=== PATIENT | male | born 1970 | race Caucasian/White ===

== ENCOUNTER 2017-07-25 22:01 | Emergency (ER) | payer MEDICAID ==
[2017-07-25] MEDS ORDERED: HYDROmorphone 1 MG/ML Syringe IVPUSH ONE ×2 (22:26→23:15)
[2017-07-25] MEDS ORDERED: Ondansetron 4 MG/2 ML SDV IVPUSH ONE (22:26)
[2017-07-25] MEDS ORDERED: LORazepam 2 MG/ML MDV IVPUSH ONE (22:31)
[2017-07-25] MEDS: Sodium Chloride 0.9% 1,000 ML IV SCH (22:40)
--- NOTE | 2017-07-25 23:21 | EDM.PDOC ---
ED HPI GENERAL MEDICAL PROBLEM - General Chief Complaint: Genitourinary Problem Stated Complaint: KIDNEY STONE Time Seen by Provider: 07/25/17 22:12 Source of Information: Reports: Patient History Limitations: Reports: No Limitations - History of Present Illness INITIAL COMMENTS - FREE TEXT/NARRATIVE: kidney stone; this is a 46 year old male present to ER via POV. Reports he is in the area [place] hunting, when at 8pm this evening experience severe bilateral flank pain. unable to tolerate the pain came to ER. reports last void this am otherwise does not have urge to void. reports past history of kidney stones with surgical procedure done Oct 2016 and 2 year before that with maybe stents, not sure. Onset: Sudden Onset Date: 07/25/17 Onset Time: 20:00 Duration: Constant, Getting Worse Right flank Pain Score (Numeric/FACES): 6 - Related Data Allergies Allergy/AdvReac Type Severity Reaction Status Date / Time No Known Allergies Allergy Verified 07/25/17 22:27 Home Meds: Home Meds SUMAtriptan Succinate [Imitrex] 25 mg PO ASDIRECTED 07/25/17 [History] traMADol [Ultram] 50 mg PO Q4H PRN 07/25/17 [History] Past Medical History HEENT History: Reports: Allergic Rhinitis Cardiovascular History: Reports: High Cholesterol Genitourinary History: Reports: Renal Calculus Musculoskeletal History: Reports: Other (See Below) Other Musculoskeletal History: "screwed up left knee, wears a brace when using knee a lot" Neurological History: Reports: Migraines - Past Surgical History HEENT Surgical History: Reports: Oral Surgery, Other (See Below) Other HEENT Surgeries/Procedures: dentures - uppers Social & Family History - Tobacco Use Smoking Status *Q: Current Every Day Smoker Years of Tobacco use: 30 Packs/Tins Daily: 1 - Caffeine Use Caffeine Use: Reports: Soda - Recreational Drug Use Recreational Drug Use: No - Living Situation & Occupation Living situation: Reports: Occupation: Employed (lives in [facility]) ED ROS GENERAL - Review of Systems Review Of Systems: See Below Constitutional: Reports: Other (bilateral flank pain) HEENT: Reports: No Symptoms Respiratory: Reports: No Symptoms Cardiovascular: Reports: No Symptoms Endocrine: Reports: No Symptoms GI/Abdominal: Reports: Abdominal Pain, Nausea (secondary to pain) : Reports: Flank Pain Musculoskeletal: Reports: Back Pain Skin: Reports: No Symptoms Neurological: Reports: No Symptoms Psychiatric: Reports: No Symptoms Hematologic/Lymphatic: Reports: No Symptoms Immunologic: Reports: No Symptoms ED EXAM, GENERAL - Physical Exam Exam: See Below Exam Limited By: No Limitations General Appearance: Alert, WD/WN, Severe Distress (nausea, dry heaves, shaking, unable to sit ), Thin Eye Exam: Bilateral Eye: EOMI, PERRL Ears: Normal External Exam, Normal Canal, Hearing Grossly Normal, Normal TMs Ear Exam: Bilateral Ear: Auricle Normal, Canal Normal, TM normal Nose: Normal Inspection, Normal Mucosa, No Blood Throat/Mouth: Normal Inspection, Normal Lips, Normal Teeth, Normal Gums, Normal Oropharynx, Normal Voice, No Airway Compromise Head: Atraumatic, Normocephalic Neck: Normal Inspection, Supple, Non-Tender, Full Range of Motion Respiratory/Chest: No Respiratory Distress, Lungs Clear, Normal Breath Sounds, No Accessory Muscle Use, Chest Non-Tender Cardiovascular: Normal Peripheral Pulses, Regular Rate, Rhythm, No Edema, No Gallop, No JVD, No Murmur, No Rub GI/Abdominal: Normal Bowel Sounds, Soft, Other (bilateral lateral abdominal pain radiates to back) (Male) Exam: Deferred Rectal (Males) Exam: Deferred Back Exam: Full Range of Motion, CVA Tenderness (R), CVA Tenderness (L) Extremities: Normal Inspection Neurological: Alert, Oriented, Normal Cognition, No Motor/Sensory Deficits Psychiatric: Normal Affect, Normal Mood Skin Exam: Warm, Dry, Intact, Normal Color, No Rash Lymphatic: No Adenopathy Course - Vital Signs Last Recorded V/S: Last Vital Signs Temp 36.4 C 07/26/17 01:40 Pulse 79 07/26/17 01:40 Resp 17 07/26/17 01:40 BP 125/75 07/26/17 01:40 Pulse Ox 98 07/26/17 01:40 - Orders/Labs/Meds Orders: Active Orders 24 hr Category Date Time Status Kidney Stone Protocol [CT] Stat Exams 07/25/17 22:29 Taken CULTURE BLOOD [BC] Urgent Lab 07/26/17 02:15 Ordered CULTURE BLOOD [BC] Urgent Lab 07/26/17 02:15 Ordered Sodium Chloride 0.9% [Normal Saline] 1,000 ml Med 07/25/17 22:15 Active IV ASDIRECTED cefTRIAXone [Rocephin] 1 gm Med 07/26/17 02:16 Ordered Sodium Chloride 0.9% [Normal Saline] 50 ml IV ONETIME Blood Culture x2 Reflex Set [OM.PC] Urgent Oth 07/26/17 02:14 Ordered Medication Orders Sodium Chloride (Normal Saline) 1,000 mls @ 999 mls/hr IV ASDIRECTED JOSE Last Admin: 07/26/17 00:20 Dose: 999 mls/hr Infusion: 07/25/17 23:41 Dose: 999 mls/hr Admin: 07/25/17 22:40 Dose: 999 mls/hr Ceftriaxone Sodium 1 gm/ (Sodium Chloride) 50 mls @ 100 mls/hr IV ONETIME ONE Stop: 07/26/17 02:45 Labs: Laboratory Tests 07/26/17 07/26/17 07/26/17 Range/Units 01:03 01:26 01:26 WBC 16.5 H (4.5-11.0) K/uL RBC 4.73 (4.30-5.90) M/uL Hgb 14.7 (12.0-15.0) g/dL Hct 43.4 (40.0-54.0) % MCV 92 (80-98) fL MCH 31 (27-31) pg MCHC 34 (32-36) % Plt Count 223 (150-400) K/uL Neut % (Auto) 84 H (36-66) % Lymph % (Auto) 9 L (24-44) % Powell % (Auto) 7 H (2-6) % Eos % (Auto) 0 L (2-4) % Baso % (Auto) 0 (0-1) % Sodium 142 (140-148) mmol/L Potassium 3.5 L (3.6-5.2) mmol/L Chloride 108 (100-108) mmol/L Carbon Dioxide 26 (21-32) mmol/L Anion Gap 11.5 (5.0-14.0) mmol/L BUN 16 (7-18) mg/dL Creatinine 1.1 (0.8-1.3) mg/dL Est Cr Clr Drug Dosing 87.56 mL/min Estimated GFR (MDRD) > 60 (>60) Glucose 115 H (74-106) mg/dL Lactic Acid (0.4-2.0) mmol/L Calcium 8.1 L (8.5-10.1) mg/dL Total Bilirubin 0.3 (0.2-1.0) mg/dL AST 16 (15-37) U/L ALT 16 (12-78) U/L Alkaline Phosphatase 73 (46-116) U/L Total Protein 6.1 L (6.4-8.2) g/dL Albumin 3.4 (3.4-5.0) g/dL Globulin 2.7 (2.3-3.5) g/dL Albumin/Globulin Ratio 1.3 (1.2-2.2) Amylase (25-115) U/L Lipase (73-393) U/L Urine Color Yellow Urine Appearance Slightly cloudy Urine pH 5.0 (4.5-8.0) Ur Specific [place] 1.015 (1.008-1.030) Urine Protein Negative (NEGATIVE) mg/dL Urine Glucose (UA) Normal (NEGATIVE) mg/dL Urine Ketones Negative (NEGATIVE) mg/dL Urine Occult Blood Large (NEGATIVE) Urine Nitrite Negative (NEGAITVE) Urine Bilirubin Negative (NEGATIVE) Urine Urobilinogen Normal (NORMAL) mg/dL Ur Leukocyte Esterase Moderate (NEGATIVE) Urine RBC 5-10 H (0-5) Urine WBC 10-20 H (0-5) Ur Epithelial Cells Few Amorphous Sediment Not seen Urine Bacteria Few Urine Mucus Moderate 07/26/17 07/26/17 Range/Units 01:28 01:28 WBC (4.5-11.0) K/uL RBC (4.30-5.90) M/uL Hgb (12.0-15.0) g/dL Hct (40.0-54.0) % MCV (80-98) fL MCH (27-31) pg MCHC (32-36) % Plt Count (150-400) K/uL Neut % (Auto) (36-66) % Lymph % (Auto) (24-44) % Powell % (Auto) (2-6) % Eos % (Auto) (2-4) % Baso % (Auto) (0-1) % Sodium (140-148) mmol/L Potassium (3.6-5.2) mmol/L Chloride (100-108) mmol/L Carbon Dioxide (21-32) mmol/L Anion Gap (5.0-14.0) mmol/L BUN (7-18) mg/dL Creatinine (0.8-1.3) mg/dL Est Cr Clr Drug Dosing mL/min Estimated GFR (MDRD) (>60) Glucose (74-106) mg/dL Lactic Acid 2.4 H (0.4-2.0) mmol/L Calcium (8.5-10.1) mg/dL Total Bilirubin (0.2-1.0) mg/dL AST (15-37) U/L ALT (12-78) U/L Alkaline Phosphatase (46-116) U/L Total Protein (6.4-8.2) g/dL Albumin (3.4-5.0) g/dL Globulin (2.3-3.5) g/dL Albumin/Globulin Ratio (1.2-2.2) Amylase 33 (25-115) U/L Lipase 119 (73-393) U/L Urine Color Urine Appearance Urine pH (4.5-8.0) Ur Specific [place] (1.008-1.030) Urine Protein (NEGATIVE) mg/dL Urine Glucose (UA) (NEGATIVE) mg/dL Urine Ketones (NEGATIVE) mg/dL Urine Occult Blood (NEGATIVE) Urine Nitrite (NEGAITVE) Urine Bilirubin (NEGATIVE) Urine Urobilinogen (NORMAL) mg/dL Ur Leukocyte Esterase (NEGATIVE) Urine RBC (0-5) Urine WBC (0-5) Ur Epithelial Cells Amorphous Sediment Urine Bacteria Urine Mucus Meds: Medications Generic Name Dose Route Start Last Admin Trade Name Freq PRN Reason Stop Dose Admin Sodium Chloride 1,000 mls @ 999 mls/hr 07/25/17 22:15 07/26/17 00:20 Normal Saline IV 999 mls/hr ASDIRECTED JOSE Administration Ceftriaxone Sodium 1 gm/ 50 mls @ 100 mls/hr 07/26/17 02:16 Sodium Chloride IV 07/26/17 02:45 ONETIME ONE Discontinued Medications Generic Name Dose Route Start Last Admin Trade Name Freq PRN Reason Stop Dose Admin Diazepam 2 mg 07/25/17 22:26 07/25/17 23:03 Valium IVPUSH 07/25/17 22:27 Not Given ONETIME ONE Hydromorphone HCl 1 mg 07/25/17 22:26 07/25/17 22:34 Dilaudid IVPUSH 07/25/17 22:27 1 mg ONETIME ONE Administration Hydromorphone HCl 1 mg 07/25/17 23:15 07/25/17 23:42 Dilaudid IVPUSH 07/25/17 23:16 1 mg ONETIME ONE Administration Hydromorphone HCl 1 mg 07/26/17 01:45 07/26/17 01:49 Dilaudid IVPUSH 07/26/17 01:46 1 mg ONETIME ONE Administration Lorazepam 2 mg 07/25/17 22:31 07/25/17 22:59 Ativan IVPUSH 07/25/17 22:32 2 mg ONETIME ONE Administration Ondansetron HCl 4 mg 07/25/17 22:26 07/25/17 22:32 Zofran IVPUSH 07/25/17 22:27 4 mg ONETIME ONE Administration - Re-Assessments/Exams Free Text/Narrative Re-Assessment/Exam: 07/25/17 23:16 upon arrival to room; Mr. Salcedo is noted to be in extreme discomfort, vomiting , shaking in pain. IV fluids NS 1000 over one hour, IV Zofran 4mg , IV Ativan 2mg, IV Dilaudid 1 mg labs; ua w/micr, Imaging; CT renal stone protocal Recheck of pain; Mr. Salcedo rates pain at 6, but is more comfortable since arrival meds; order Dilaudid [address] report and urine collection. 07/26/17 02:26 CT show bilateral obstructing renal stones, with hydronephrosis bladder scan 120ml in bladder labs; elevated WBC and lactic acid will do blood cultures x2, med Rocephin 1 gram consults to [facility] will accept Mr. Salcedo for further care and treatment. will transport via EMS Mr. Salcedo agree with plan of care 07/26/17 02:30 Departure - Departure Time of Disposition: 02:31 Disposition: DC/Tfer to Acute Hospital 02 Condition: Fair Clinical Impression: Kidney stone, Sepsis, Hydronephrosis with renal and ureteral calculous obstruction - Discharge Information Referrals: PCP,None [Primary Care Provider] - Forms: ED Department Discharge Care Plan Goals: transfer to , [place] transport via EMS Dr. Pierre accepting Mr. Salcedo agrees with plan of care. - Problem List & Annotations (1) Hydronephrosis with renal and ureteral calculous obstruction SNOMED Code(s): 452554461 Code(s): N13.2 - HYDRONEPHROSIS WITH RENAL AND URETERAL CALCULOUS OBSTRUCTION Status: Acute Priority: High Current Visit: Yes (2) Kidney stone SNOMED Code(s): 37850638 Code(s): N20.0 - CALCULUS OF KIDNEY Status: Acute Priority: High Current Visit: Yes (3) Sepsis SNOMED Code(s): 55290553 Code(s): A41.9 - SEPSIS, UNSPECIFIED ORGANISM Status: Acute Priority: High Current Visit: Yes Qualifiers: Sepsis type: sepsis due to unspecified organism Qualified Code(s): A41.9 - Sepsis, unspecified organism - Problem List Review Problem List Initiated/Reviewed/Updated: Yes - My Orders Last 24 Hours: My Active Orders 07/25/17 22:15 Sodium Chloride 0.9% [Normal Saline] 1,000 ml IV ASDIRECTED 07/25/17 22:29 Kidney Stone Protocol [CT] Stat 07/26/17 02:14 Blood Culture x2 Reflex Set [OM.PC] Urgent 07/26/17 02:15 CULTURE BLOOD [BC] Urgent CULTURE BLOOD [BC] Urgent 07/26/17 02:16 cefTRIAXone [Rocephin] 1 gm Sodium Chloride 0.9% [Normal Saline] 50 ml IV ONETIME - Assessment/Plan Last 24 Hours: My Active Orders 07/25/17 22:15 Sodium Chloride 0.9% [Normal Saline] 1,000 ml IV ASDIRECTED 07/25/17 22:29 Kidney Stone Protocol [CT] Stat 07/26/17 02:14 Blood Culture x2 Reflex Set [OM.PC] Urgent 07/26/17 02:15 CULTURE BLOOD [BC] Urgent CULTURE BLOOD [BC] Urgent 07/26/17 02:16 cefTRIAXone [Rocephin] 1 gm Sodium Chloride 0.9% [Normal Saline] 50 ml IV ONETIME Plan: hemantsfer to [place], [place] transport via EMS Dr. Pierre accepting Mr. Salcedo agrees with plan of care.
[2017-07-26] MEDS: Sodium Chloride 0.9% 1,000 ML IV SCH (00:20)
[2017-07-26] MEDS ORDERED: HYDROmorphone 1 MG/ML Syringe IVPUSH ONE (01:45)
[2017-07-26] MEDS ORDERED: cefTRIAXone 1 GM in Sodium Chloride 0.9% 50 ML IV ONE (02:16)
[2017-07-26] MEDS ORDERED: Sodium Chloride 0.9% 1,000 ML IV SCH (02:45)
== END 2017-07-26 03:41 ==
LOC: JP.ED 22:01
DX: A41.9 Sepsis, unspecified organism (principal); N13.2 Hydronephrosis with renal and ureteral calculous obstruction; F17.210 Nicotine dependence, cigarettes, uncomplicated; E78.00 Pure hypercholesterolemia, unspecified; Z98.890 Other specified postprocedural states
CPT/HCPCS: 36415; 74176; 80053; 81001; 82150; 83605; 83690; 85025; 87040; 96361; 96374; 96375; 96376; 99285; J0696; J1170; J2060; J2405; J7040; J7050